=== PATIENT | female | born 1965 | race Caucasian/White ===

== ENCOUNTER → 2016-10-15 | Outpatient (CLI) | payer OTHER | LOC: BRMIMAGING 10:38 | PROVIDERS: ATTEND Internal Medicine | DX: R93.6 Abnormal findings on diagnostic imaging of limbs (principal); M25.562 Pain in left knee | CPT/HCPCS: 73562-PO; 73610-PO ==

== ENCOUNTER → 2016-11-26 | Outpatient (CLI) | payer OTHER | LOC: BRMIMAGING 13:38 | PROVIDERS: ATTEND Internal Medicine | DX: S82.64XD Nondisplaced fracture of lateral malleolus of right fibula, subsequent encounter for closed fracture with routine healing (principal) | CPT/HCPCS: 73610-PO ==